=== PATIENT | male | born 1975 | race Caucasian/White ===

== ENCOUNTER 2018-03-07 20:37 | Emergency (ER) | payer OTHER ==
[~2018-03-07] VITALS: Ht 165.1 cm; Wt 90.0 kg
[2018-03-07 21:07] VITALS: Ht 165.1 cm; Wt 90.0 kg
[2018-03-07 23:12] VITALS: BP 125/86
== END 2018-03-07 23:13 | disposition home or self-care (01) ==
LOC: ED 20:37
DX: S39.011A Strain of muscle, fascia and tendon of abdomen, initial encounter (principal); X50.0XXA Overexertion from strenuous movement or load, initial encounter; Y93.9 Activity, unspecified; Y92.89 Other specified places as the place of occurrence of the external cause; Y99.8 Other external cause status
CPT/HCPCS: J1885